=== PATIENT | female | born 1990 | race Caucasian/White ===

== ENCOUNTER → 2021-02-22 | Emergency (ER) | payer OTHER ==
[~2021-02-22] VITALS: Ht 170.2 cm; Wt 65.3 kg
== END | disposition left against medical advice (07) ==
LOC: ER 18:26
DX: Z53.21 Procedure and treatment not carried out due to patient leaving prior to being seen by health care provider (principal)

== ENCOUNTER 2022-03-24 15:56 | Outpatient (CLI) | payer OTHER | END 2022-03-24 17:13 | disposition home or self-care (01) | LOC: PRENATAL 15:56 | PROVIDERS: ATTEND Obstetrics & Gynecology Maternal & Fetal Medicine | DX: O35.9XX0 Maternal care for (suspected) fetal abnormality and damage, unspecified, not applicable or unspecified (principal); O35.3XX0 Maternal care for (suspected) damage to fetus from viral disease in mother, not applicable or unspecified; O34.10 Maternal care for benign tumor of corpus uteri, unspecified trimester; Z3A.20 20 weeks gestation of pregnancy ==

== ENCOUNTER 2022-06-15 15:25 | Outpatient (CLI) | payer OTHER | END 2022-06-15 16:13 | disposition home or self-care (01) | LOC: PRENATAL 15:25 | PROVIDERS: ATTEND Obstetrics & Gynecology Maternal & Fetal Medicine | DX: O26.849 Uterine size-date discrepancy, unspecified trimester (principal); O35.9XX0 Maternal care for (suspected) fetal abnormality and damage, unspecified, not applicable or unspecified; O40.1XX0 Polyhydramnios, first trimester, not applicable or unspecified; O34.10 Maternal care for benign tumor of corpus uteri, unspecified trimester; Z3A.32 32 weeks gestation of pregnancy ==

== ENCOUNTER 2022-07-06 11:07 | Outpatient (CLI) | payer OTHER | END 2022-07-06 12:39 | disposition home or self-care (01) | LOC: PRENATAL 11:07 | PROVIDERS: ATTEND Obstetrics & Gynecology Maternal & Fetal Medicine | DX: O26.849 Uterine size-date discrepancy, unspecified trimester (principal); O36.8199 Decreased fetal movements, unspecified trimester, other fetus; O35.9XX0 Maternal care for (suspected) fetal abnormality and damage, unspecified, not applicable or unspecified; O34.10 Maternal care for benign tumor of corpus uteri, unspecified trimester; Z3A.35 35 weeks gestation of pregnancy ==

== ENCOUNTER 2022-07-25 11:56 | Outpatient (CLI) | payer OTHER ==
[2022-07-25] MEDS ORDERED: PRENATAL + DHA1 EAC1 PO (12:19)
== END 2022-07-25 12:22 | disposition home or self-care (01) ==
LOC: OBS/DEL 11:56
PROVIDERS: ATTEND Obstetrics & Gynecology
DX: O47.1 False labor at or after 37 completed weeks of gestation (principal); Z3A.38 38 weeks gestation of pregnancy

== ENCOUNTER 2022-08-07 03:32 | Inpatient (IN) | payer OTHER ==
[~2022-08-07] VITALS: Ht 167.6 cm; Wt 81.6 kg
[~2022-08-07 03:32] MED LIST: PRENATAL + DHA1 EAC1 PO
== END 2022-08-09 14:57 | disposition home or self-care (01) | DRG 807 ==
LOC: LDR 03:32 → OB/GYN 03:32
PROVIDERS: ADMIT Obstetrics & Gynecology; ATTEND Obstetrics & Gynecology
PROC: 10E0XZZ Delivery of Products of Conception, External Approach (ICD-10-PCS; principal; 2022-08-07)
PROC: 0KQM0ZZ Repair Perineum Muscle, Open Approach (ICD-10-PCS; 2022-08-07)
PROC: 4A1HXCZ Monitoring of Products of Conception, Cardiac Rate, External Approach (ICD-10-PCS; 2022-08-07)
DX: O70.1 Second degree perineal laceration during delivery (principal); Z37.0 Single live birth; Z3A.40 40 weeks gestation of pregnancy; Z20.822 Contact with and (suspected) exposure to COVID-19